=== PATIENT | female | born 1995 | race African-American/Black ===

== ENCOUNTER → 2024-10-07 08:11 | Outpatient (REF) | payer OTHER, SELFPAY | LOC: HWRAD 08:11 | PROVIDERS: ATTENDING PHYSICIAN Obstetrics & Gynecology Gynecology | DX: N83.209 Unspecified ovarian cyst, unspecified side (principal) | CPT/HCPCS: 76830; 76856 ==

== ENCOUNTER → 2025-03-24 07:38 | Outpatient (REF) | payer OTHER, SELFPAY | LOC: HWRAD 07:38 | PROVIDERS: ATTENDING PHYSICIAN Obstetrics & Gynecology Gynecology | DX: N83.202 Unspecified ovarian cyst, left side (principal) | CPT/HCPCS: 76830; 76856 ==

== ENCOUNTER → 2025-05-31 11:39 | Outpatient (REF) | payer OTHER, SELFPAY | LOC: PAVMRI 11:39 | PROVIDERS: ATTENDING PHYSICIAN Obstetrics & Gynecology Gynecology; FAMILY PHYSICIAN Student in an Organized Health Care Education/Training Program | DX: N83.209 Unspecified ovarian cyst, unspecified side (principal) | CPT/HCPCS: 72197; A9575 ==